=== PATIENT | female | born 1990 ===

== ENCOUNTER 2024-04-25 07:30 | Day surgery (SDC) | payer OTHER ==
[2024-04-25] MEDS ORDERED: DIPHENHYDRAMINE HCL 50 MG/ML VIAL 1ML IV ONE (14:00)
[2024-04-25] MEDS ORDERED: MIDAZOLAM HCL 2 MG/2 ML VIAL IV ONE (14:00)
[2024-04-25] MEDS ORDERED: fentaNYL CITRATE 50 MCG/ML AMPUL IV ONE (14:00)
== END 2024-04-25 15:40 | disposition home or self-care (01) ==
LOC: AMB-ENDOS 07:30
PROVIDERS: ATTEND Surgery
DX: K62.5 Hemorrhage of anus and rectum (principal); K52.89 Other specified noninfective gastroenteritis and colitis; K64.8 Other hemorrhoids; K62.89 Other specified diseases of anus and rectum